=== PATIENT | female | born 1985 | race African-American/Black ===

== ENCOUNTER 2024-05-06 20:42 | Emergency (ER) | payer BC, MEDICAID ==
[~2024-05-06] VITALS: Ht 165.1 cm; Wt 78.0 kg
[2024-05-06 21:06] VITALS: O2SAT 100
[2024-05-06 21:56] LABS: HEMATOCRIT. 39.5 % (36.0-48.0); HEMOGLOBIN. 12.5 g/dL (12.0-16.0); MEAN CORPUSCULAR HEMOGLOBIN 26.7 pg (28.0-32.0); MEAN CORPUSCULAR HGB CONC 31.7 g/dL (31.0-37.0); MEAN CORPUSCULAR VOLUME 84.1 fL (81.0-99.0); MEAN PLATELET VOLUME 10.3 fl (7.4-10.4); PLATELET 254 x1000/uL (130-400); RED CELL DISTRIBUTION WIDTH 15.2 % (11.6-14.6)
[2024-05-06 22:01] LABS: CHLORIDE 110 mEq/L (98-107); POTASSIUM 3.6 mEq/L (3.5-5.1); SODIUM 143 mEq/L (136-145)
[2024-05-06 22:02] LABS: CARBON DIOXIDE 21 mEq/L (21-32)
[2024-05-06 22:03] LABS: CALCIUM 9.5 mg/dL (8.7-10.4)
[2024-05-06 22:05] LABS: DIFFERENTIAL COMMENT 1
[2024-05-06 22:07] LABS: CREATININE 0.8 mg/dL (0.6-1.0); GLUCOSE 153 mg/dL (70-105); UREA NITROGEN BLOOD 9 mg/dL (9-23)
[2024-05-06 22:09] LABS: ALANINE AMINOTRANSFERASE 12 IU/L (10-49); ALBUMIN 4.8 g/dL (3.2-4.8); ASPARTATE AMINOTRANSFERASE 15 IU/L (<34)
[2024-05-06 22:10] LABS: BILIRUBIN DIRECT 0.1 mg/dL (<=3.0); BILIRUBIN TOTAL 0.3 mg/dL (0.1-1.0); PROTEIN TOTAL 8.4 g/dL (6.0-8.3)
[2024-05-06] MEDS: ONDANSETRON HCL 4MG/2ML INJ IV STA (22:36)
[2024-05-06 22:45] LABS: ANISOCYTOSIS 1+; PLATELET ESTIMATE NORMAL
[2024-05-06] MEDS: SODIUM CHLORIDE 0.9% 1,000 ML IV ONE (22:46)
[2024-05-07 02:17] VITALS: BP 147/72; PULSE 57; RESP 16; TEMP 36.78072; O2SAT 98
== END 2024-05-07 02:05 | disposition home or self-care (01) ==
LOC: ER 20:42
DX: K29.70 Gastritis, unspecified, without bleeding (principal); I10 Essential (primary) hypertension; Z98.51 Tubal ligation status
CPT/HCPCS: 99283; 96374; 96361; 80076; 80048; 83690; 85025; 36415; J2405; J7030